=== PATIENT | male | born 1960 | race Caucasian/White ===

== ENCOUNTER 2018-09-28 03:42 | Emergency (ER) | payer BC ==
[2018-09-28] MEDS ORDERED: Ondansetron 4 MG Tab.DIS PO ONE ×2 (04:18→11:56)
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
[2018-09-28] MEDS ORDERED: Magnesium Citrate Solution 296 ML Bottle PO ONE ×2 (04:59→08:01)
[2018-09-28] MEDS ORDERED: Lactulose Soln 10 GM/15 ML 30 ML UD Cup PO ONE (06:54)
--- NOTE | 2018-09-28 06:58 | CR ---
Abdomen: Supine view of the abdomen was obtained. Comparison: No previous abdominal x-ray. Increased stool is noted throughout the colon. Bowel gas pattern is otherwise unremarkable. Bony structures appear within normal limits for the patient's age. No abnormal calcifications or soft tissue abnormality is seen. Impression: 1. Increased stool throughout the colon. Diagnostic code #2
[2018-09-28] MEDS ORDERED: Magnesium Hydroxide 400 MG/5 ML Susp 30 ML Cup PO ONE (11:50)
== END 2018-09-28 14:15 | disposition home or self-care (01) ==
LOC: JD.ED 03:42
DX: K59.00 Constipation, unspecified (principal); Z87.891 Personal history of nicotine dependence
CPT/HCPCS: 36415; 74018; 80053; 83690; 85007; 85027; 86140; 99284; A9270